=== PATIENT | male | born 1950 | race Caucasian/White ===

== ENCOUNTER → 2017-11-04 | Outpatient (CLI) | payer MEDICARE ==
--- NOTE | 2017-11-04 13:14 | XR ---
Abdomen HISTORY: Hematuria Frontal view of the abdomen submitted on 2 images There are calcifications within the pelvis which may be vascular. Difficult to exclude a lower pole r ight renal calculus. Lung bases are not included on the exam. No bowel obstruction or pneumoperitoneu m. Degenerative disc changes in the visualized spine. IMPRESSION: Indeterminate calcifications within the pelvis, difficult to exclude right-sided nephroli thiasis.
== END | disposition home or self-care (01) ==
LOC: RADXRMAIN 09:45
PROVIDERS: ATTEND Urology
DX: N20.0 Calculus of kidney (principal)
CPT/HCPCS: 74018

== ENCOUNTER → 2017-11-26 | Outpatient (CLI) | payer MEDICARE ==
[2017-11-26 16:45] LABS: Blood Urea Nitrogen 16 mg/dL (9-20)
--- NOTE | 2017-11-27 11:13 | CT ---
EXAMINATION TYPE: CT urogram wo/w con DATE OF EXAM: 11/26/2017 COMPARISON: NONE HISTORY: Microscopic hematuria and history of renal calculi. CT DLP: 3450.1 mGycm, Automated Exposure Control for Dose Reduction was Utilized. CONTRAST: CT scan of the abdomen and pelvis is performed with oral and without and with IV Contrast, patient in jected with 100 mL of Isovue M300. FINDINGS: LUNG BASES: No significant abnormality is appreciated. LIVER/GB: Tiny hypodensities within the liver too small to characterize.. There also appears to be he terogeneous attenuation particularly involving the liver. PANCREAS: No significant abnormality is seen. SPLEEN: No significant abnormality is seen. There is an accessory spleen within the left upper quadr ant and additional tiny punctate areas which likely represent additional splenule scattered throughou t the left upper quadrant. Tiny hypodensity within the upper margin of the spleen measures less than 5 mm too small to characterize. ADRENALS: No significant abnormality is seen. KIDNEYS: No hydronephrosis or nephrolithiasis. There is no definite filling defect within the visuali zed renal pelvis. Ureters appear to be of normal course and caliber. Visualized portion of the bladde r is unremarkable. There is a question of a left ureteral wall thickening approximately 2.5 cm above the left UVJ.. BOWEL: Hypertrophic and degenerative change of the spine noted.. PROSTATE/SEMINAL VESICLES: Mild prostate hypertrophy noted. LYMPH NODES: No greater than 1cm abdominal or pelvic lymph nodes are appreciated. OSSEOUS STRUCTURES: No significant abnormality is seen. OTHER: Atherosclerotic changes aorta. Hypertrophic and degenerative change spine. IMPRESSION: 1. No hydronephrosis, nephrolithiasis or renal mass. There is a question of a localized area of urete ral wall thickening approximately 2.5 cm above the left UVJ within the distal left ureter. Best noted on axial image 70 of the delayed images and coronal image 105 sequence 21. 2. Prostate hypertrophy. 3. There is heterogeneous attenuation of the liver which should be correlated with liver function philippe dies.
== END | disposition home or self-care (01) ==
LOC: RADCTMAIN 16:01
PROVIDERS: ATTEND Urology
DX: N40.0 Benign prostatic hyperplasia without lower urinary tract symptoms (principal); K76.9 Liver disease, unspecified; R31.29 Other microscopic hematuria
CPT/HCPCS: 82565; 84520; 74178; 36415; 74400; Q9967

== ENCOUNTER → 2019-05-18 | Outpatient (CLI) | payer MEDICARE ==
--- NOTE | 2019-05-18 11:40 | XR ---
EXAMINATION TYPE: XR KUB DATE OF EXAM: 05/18/2019 COMPARISON: 11/04/2017 HISTORY: Pain TECHNIQUE: One view abdominal series FINDINGS: The osseous structures are intact. The bowel gas pattern is nonspecific. Extensive retained fecal de bris throughout the colon. Arthropathy of the hips. Calcifications in the pelvis are nonspecific. Maria Ines g bases are clear. IMPRESSION: 1. Nonspecific abdomen. No definite suspicious calcifications identified. Stable calcifications in t he pelvis most likely vascular.
== END | disposition home or self-care (01) ==
LOC: RADXRMAIN 11:11
PROVIDERS: ATTEND Urology
DX: N20.0 Calculus of kidney (principal)
CPT/HCPCS: 74018; 84153

== ENCOUNTER → 2020-04-08 | Outpatient (CLI) | payer MEDICARE ==
--- NOTE | 2020-04-08 11:06 | XR ---
EXAMINATION TYPE: XR KUB DATE OF EXAM: 04/08/2020 COMPARISON: 05/18/2019 HISTORY: Left flank pain TECHNIQUE: One view abdominal series FINDINGS: The osseous structures are intact. The bowel gas pattern is nonspecific. Hypertrophic and degenerati ve change of the spine. Renal outlines are somewhat limited due to overlying bowel gas with no defini tive calcifications. Hypertrophic arthropathy of the hips. Calcifications in the pelvis are stable and therefore likely va scular. IMPRESSION: 1. Nonspecific abdomen. No definite calcifications are seen.
== END | disposition home or self-care (01) ==
LOC: RADXRMAIN 09:54
PROVIDERS: ATTEND Urology
DX: R10.9 Unspecified abdominal pain (principal); N20.1 Calculus of ureter
CPT/HCPCS: 74018

== ENCOUNTER → 2022-10-26 | Outpatient (CLI) | payer MEDICARE ==
[2022-10-26 23:06] LABS: Alternaria alternata IgE <0.10 kU/L; Aspergillus fumagatus IgE <0.10 kU/L; Birch IgE <0.10 kU/L; Cat Epith & Dander IgE <0.10 kU/L; Cladosporian herbarum IgE <0.10 kU/L; Cockroach IgE <0.10 kU/L; Dermato. farinae IgE 0.35 kU/L; Dog Dander IgE <0.10 kU/L; Elm IgE <0.10 kU/L; Maple (Box Elder) IgE <0.10 kU/L; Oak IgE <0.10 kU/L; Ragweed,Common IgE <0.10 kU/L; Red Top (Bentgrass) IgE <0.10 kU/L
[2022-10-26 23:30] LABS: Immunoglobulin E 7.93 IU/mL (0.00-114.00)
== END | disposition home or self-care (01) ==
LOC: LABWHC1 09:51
PROVIDERS: ATTEND Internal Medicine
DX: R05.3 Chronic cough (principal)
CPT/HCPCS: 36415; 82785; 85008; 86003